=== PATIENT | female | born 1950 | race Caucasian/White ===

== ENCOUNTER → 2016-08-02 | Outpatient (CLI) | payer OTHER ==
--- NOTE | 2016-08-02 14:42 | MAMMOGRAPHY REPORT ---
BILATERAL DIGITAL SCREENING MAMMOGRAM TOMOSYNTHESIS WITH CAD: 08/02/2016 CLINICAL HISTORY: Routine screening. TECHNIQUE: Breast tomosynthesis in addition to standard 2D mammography was performed. Current study was also evaluated with a Computer Aided Detection (CAD) system. COMPARISON: No prior exams were available for comparison. BREAST COMPOSITION: There are scattered areas of fibroglandular density in both breasts. FINDINGS: There is a lobulated 11 mm mass within the right upper outer quadrant, as well as a possib le round 4 mm mass within the right subareolar breast seen on the cc view only, for which spot compre ssion tomosynthesis views and possible breast ultrasound are recommended for further evaluation. The remainder of both breasts are negative, without suspicious masses, calcifications, or areas of ar chitectural distortion noted. IMPRESSION: ACR BI-RADS CATEGORY 0: INCOMPLETE EVALUATION: NEED ADDITIONAL IMAGING EVALUATION Right breast masses, for which additional imaging evaluation is recommended. The patient will be rose led to schedule an appointment. Approximately 10% of breast cancers are not detected with mammography. A negative mammographic report should not delay biopsy if a clinically suggestive mass is present. Marjan Browning M.D. ah/:08/02/2016 13:50:54 Strategic Sourcing Manager: Jose IZQUIERDO(Alexa)(M), [facility] letter sent: Addl Imaging 0 BI-RADS Code: ACR BI-RADS Category 0: Incomplete Evaluation: Need Additional Imaging Evaluation
== END | disposition home or self-care (01) ==
LOC: C.MAMM 12:30
PROVIDERS: ATTEND Neuromusculoskeletal Medicine & OMM
DX: Z00.00 Encounter for general adult medical examination without abnormal findings (principal); Z12.31 Encounter for screening mammogram for malignant neoplasm of breast; N63 Unspecified lump in breast; M85.88 Other specified disorders of bone density and structure, other site

== ENCOUNTER → 2016-08-09 | Outpatient (CLI) | payer OTHER ==
--- NOTE | 2016-08-09 16:11 | MAMMOGRAPHY REPORT ---
UNILATERAL RIGHT DIGITAL DIAGNOSTIC MAMMOGRAM TOMOSYNTHESIS AND TARGETED RIGHT ULTRASOUND: 08/09/2016 CLINICAL HISTORY: Callback from screening mammogram for right breast masses. TECHNIQUE: Breast tomosynthesis in addition to standard 2D mammography was performed. Spot compress ion right CC and MLO tomosynthesis images including C views and spot magnification right cc and ML vi ews were obtained. COMPARISON: Comparison is made to exam dated: 08/02/2016 mammogram - [facility]. BREAST COMPOSITION: There are scattered areas of fibroglandular density in the right breast. FINDINGS: Spot compression views of the right breast demonstrate a persistent oval 12 mm mass in the right upper outer quadrant with non-circumscribed margins. Additionally, there is a persistent oval 6 mm mass in the right lateral subareolar breast seen on the cc view which demonstrates non-circumsc ribed margins. Spot magnification views of the right breast demonstrate a small 2 mm cluster of calc ifications in the right 12:00 anterior breast, which are predominantly punctate in morphology. Targeted ultrasound was performed of the area of the right breast masses. In the right breast at 10: 00, 6 cm from the nipple, there is a subtle isoechoic solid mass with a few internal anechoic cystic spaces and non-circumscribed margins, measuring 1.1 x 0.5 cm in greatest dimension. This likely yolande esponds with one of the mammographic masses and is indeterminant. In the right 9:00 subareolar breas t, there is a hypoechoic 3 x 3 x 3 mm mass with non-circumscribed margins. This is felt to correlate with the other mammographic mass and is indeterminant. Recommend ultrasound-guided core needle biop sy of both masses for further evaluation, given no priors to document stability. IMPRESSION: ACR BI-RADS CATEGORY 4: SUSPICIOUS, TARGETED ULTRASOUND ACR BI-RADS CATEGORY 4: SUSPICIO US 1. Isoechoic 1.1 cm mass in the right breast at 10:00 on ultrasound, which corresponds with one of t he mammographic masses. Hypoechoic 3 mm mass in the right 9:00 subareolar breast on ultrasound, whic h corresponds with the other mammographic mass. The masses are indeterminate and ultrasound-guided c ore needle biopsy is recommended for further evaluation, given no priors to document stability. 2. Small 2 mm cluster of calcifications in the right 12:00 breast. Pending benign pathology of the right breast biopsies, would recommend follow-up diagnostic mammograms of the right breast in 6 month s to confirm stability, given no priors for comparison. A phone call was made to the physician's office to confirm faxed results were received. The patient has been verbally notified of the results. She tentatively scheduled the biopsies before leaving the department. Approximately 10% of breast cancers are not detected with mammography. A negative mammographic report should not delay biopsy if a clinically suggestive mass is present. Marjan Browning M.D. ah/:08/09/2016 12:05:12 Associate Professor Of Chemistry: Renee IZQUIERDO(Alexa)([place]), [facility] letter sent: Abnormal 4/5 BI-RADS Code: ACR BI-RADS Category 4: Suspicious Ultrasound BI-RADS: ACR BI-RADS Category 4: Suspici ous
== END | disposition home or self-care (01) ==
LOC: C.MAMM 09:54
PROVIDERS: ATTEND Neuromusculoskeletal Medicine & OMM
DX: N63 Unspecified lump in breast (principal); R92.0 Mammographic microcalcification found on diagnostic imaging of breast

== ENCOUNTER → 2016-08-21 | Outpatient (CLI) | payer OTHER ==
--- NOTE | 2016-08-21 12:00 | Discharge Instructions ---
Discharge Instructions Procedure Procedure Date: Aug 21, 2016. Reason for visit: Right Masses. Discharge Discharge Date: Aug 21, 2016. Discharge Diagnosis: post right breast ultrasound guided core biopsy x 2 Instructions Activity Recommendations: Additional Limitations (see below) Return to School/Work: no limitations Recommended Home Diet: No Limitations Provider Instructions: ACTIVITY RECOMMENDATIONS: * No lifting, pushing, pulling or exercising the affected side for three days. RETURN TO SCHOOL/WORK: * You may return to work/school after the procedure, but do not perform any strenuous activities for 24 to 48 hours. MEDICATIONS: * Tylenol (two 325 mg) every four to six hours if needed for mild pain (if not allergic to Tylenol). DIET: * Resume previous diet. SPECIAL CARE INSTRUCTIONS: * Keep biopsy site dry for 24 hours. May shower after 24 hours, but do not soak (bathe) incision. * May remove Tegaderm (plastic patch) tomorrow AFTER showering. * Leave the steri-strips on for one week. Allow the steri-strips to fall off by themselves. If not off after one week, you may remove them. You may place a Bandaid crosswise over the strips, if desired. * Apply ice 10 minutes on and 10 minutes off as needed. * Wear a bra at bedtime to sleep more comfortably for 2-3 days. * Your referring physician should have the results after approximately 5 to 7 business days. * Call for unusual bleeding, fever, drainage, etc or if you have any questions call [phone] during normal business hours or after hours call Dr López, . FOLLOW UP VISIT: Follow-up with Referring Physician as scheduled. Allergies Coded Allergies: Penicillins (Verified Allergy, Mild, RASH, 06/08/12) Steven Osborn Recommendations: Call your doctor if: * Temperature above 101 degrees * Pain not relieved by pain medicine ordered * There is increased drainage or redness from any incision * You have any unanswered questions or concerns. Your Doctors Instructions noted above were prepared by provider Holly López. Patient Signature Section: Patient Instructions Signature Page Shaista Harding Patient (or Guardian) Signature/Date: I have read and understand the instructions given to me by my caregivers. Caregiver/RN/Doctor Signature/Date: The above-named patient and/or guardian has received patient instructions on this date. + Original Patient Signature Page (only) stays with chart. Please make copy for patient.
--- NOTE | 2016-08-21 13:28 | MAMMOGRAPHY REPORT ---
MULTIPLE ULTRASOUND GUIDED BIOPSIES RIGHT BREAST: 08/21/2016 CLINICAL HISTORY: Indeterminate solid masses in the 10:00 right breast posteriorly, and 9:00 anterior retroareolar breast. Patient presents for ultrasound guided core biopsy 2. COMPARISON: Comparison is made to exams dated: 08/02/2016 mammogram, 08/09/2016 mammogram, 08/09/2016 ul trasound, and 08/21/2016 mammogram - [facility]. PATIENT CONSENT: The procedure, risks and benefits were discussed with the patient and informed writt en consent was obtained. Specific risks to this procedure include: bleeding, infection, pain, medicat ion reaction, nontarget biopsy, sampling error, puncture of adjacent structure and metal allergy. PROCEDURE DESCRIPTION: A time out was performed and the right breast was agreed as the site of biopsy . The skin was prepped and draped in the usual sterile fashion. First, the small 3 mm hypoechoic james id-appearing mass in the 9:00 right breast (specimen A) was identified and chosen for biopsy. Subcut aneous and intraparenchymal 1% buffered lidocaine without epinephrine was administered as local anest hesia. A skin incision was made. Through the incision, 4 samples were taken with a 14 gauge Achieve biopsy device. A ribbon shaped metallic marker was placed at the biopsy site. Hemostasis was achieved after manual compression. The patient tolerated the procedure well and there was no immediate compli cation. Then the larger, 1.1 cm isoechoic mass in the 10:00 right breast (specimen B) was identified and targ eted for biopsy. Additional subcutaneous and intraparenchymal 1% buffered lidocaine with and without epinephrine was administered as local anesthesia. A skin incision was made. Through the incision, 3 samples were taken with a 14 gauge Achieve biopsy device. A wing shaped metallic marker was placed a t the biopsy site. Hemostasis was achieved after manual compression. The patient tolerated the proced ure well and there was no immediate complication. All of the samples were sent to the pathology depa rtment in appropriately labeled containers per and Post procedure right CC and ML to the digital anterolisthesis images were obtained. New metallic bio psy markers are associated with the mammographic masses in question in the 9:00 retroareolar and 10:0 0 posterior right breast. No significant post biopsy hematoma is seen. IMPRESSION: ULTRASOUND GUIDED BIOPSY Status post ultrasound guided core biopsy of 2 indeterminate masses in the 9:00 and 10:00 axes of the right breast, with biopsy markers placed at each site. The patient will receive notification of the biopsy results from her referring physician. Holly López M.D. ay/:08/21/2016 12:22:40 Certified Optician: Renee Palencia, [facility]
--- NOTE | 2016-08-21 13:28 | MAMMOGRAPHY REPORT ---
ULTRASOUND GUIDED BIOPSY: 08/21/2016 CLINICAL HISTORY: 2 indeterminate solid masses in the 10:00 right breast and 9:00 retroareolar right breast. Patient presents for ultrasound guided core biopsy 2. Please refer to the report from right breast ultrasound guided core biopsy performed at the same time for full detail. IMPRESSION: ULTRASOUND GUIDED BIOPSY Please refer to the report from right breast ultrasound guided core biopsy performed at the same time for full detail. Holly López M.D. ay/:08/21/2016 12:10:56 Credit Administration Officer: Renee Palencia, [facility]
--- NOTE | 2016-08-21 13:29 | MAMMOGRAPHY REPORT ---
UNILATERAL RIGHT DIGITAL DIAGNOSTIC MAMMOGRAM TOMOSYNTHESIS: 08/21/2016 CLINICAL HISTORY: 2 indeterminate solid masses in the right breast and 9:00 and 10:00 axes. Patient presents for ultrasound guided core biopsy 2. Please refer to the report from right breast ultrasound guided core biopsy performed at the same time for full detail. IMPRESSION: POST PROCEDURE IMAGING FOR MARKER PLACEMENT Please refer to the report from right breast ultrasound guided core biopsy performed at the same time for full detail. Approximately 10% of breast cancers are not detected with mammography. A negative mammographic report should not delay biopsy if a clinically suggestive mass is present. Holly López M.D. ay/:08/21/2016 12:10:06 Paint Mixer Machine: Renee Palencia, [facility] BI-RADS Code: Post Procedure Imaging For Marker Placement
== END | disposition home or self-care (01) ==
LOC: C.MAMM 10:53
PROVIDERS: ATTEND Neuromusculoskeletal Medicine & OMM
DX: N63 Unspecified lump in breast (principal)

== ENCOUNTER → 2016-09-28 | Outpatient (CLI) | payer OTHER ==
[2016-09-28 12:13] LABS: ALT/SGPT 31 U/L (12-78); BLOOD UREA NITROGEN 12 mg/dl (7-18); CALCIUM 9.6 mg/dl (8.5-10.1); CARBON DIOXIDE 29 mmol/L (21-32); CHLORIDE 109 mmol/L (98-107); CHOLESTEROL 218 mg/dl (0-200); GLUCOSE,FASTING 84 mg/dl (70-99); SODIUM 142 mmol/L (136-145)
[2016-09-28 12:16] LABS: ALB/GLOB RATIO 1.1 (0.9-2); ALKALINE PHOSPHATASE 91 U/L (45-117); AST/SGOT 26 U/L (15-37); CHOLESTEROL/HDL RATIO 3.4; HDL CHOLESTEROL 64 mg/dl; LDL CHOLESTEROL CALCULATED 137 mg/dl; TRIGLYCERIDES 84 mg/dl (0-150); VERY LOW DENSITY LIPOPROT CALC 17 mg/dl
== END | disposition home or self-care (01) ==
LOC: C.LABPBG 09:53
PROVIDERS: ATTEND Physician Assistant
DX: Z00.00 Encounter for general adult medical examination without abnormal findings (principal); Z11.59 Encounter for screening for other viral diseases